=== PATIENT | male | born 1955 | race Caucasian/White ===

== ENCOUNTER 2018-01-12 08:32 | Emergency (ER) | payer OTHER ==
[2018-01-12 08:59] VITALS: BP 141/81
--- NOTE | 2018-01-12 09:46 | RAD ---
HISTORY: ? DVT vs ganglion cyst rupture COMPARISONS: None relevant TECHNIQUE: Multiple transverse and longitudinal ultrasound images were obtained of the right lower extremity from the level of the common femoral vein inferiorly through to the infrapopliteal veins using grayscale, color Doppler, and spectral Doppler imaging with and without compression and with augmentation. Comparison images were obtained of the contralateral common femoral vein. FINDINGS: VEINS: The venous system of the right lower extremity is compressible throughout its course, with normal flow on color Doppler imaging and normal response to augmentation on spectral Doppler imaging. SOFT TISSUES: There is a 2.1 x 1.6 x 1.7 cm fluid collection within the popliteal fossa. OTHER FINDINGS: None. IMPRESSION: 1. NO RIGHT LOWER EXTREMITY DEEP VEIN THROMBOSIS 2. MILAN'S CYST
--- NOTE | 2018-01-12 10:11 | UC ---
Knee Pain HPI - HPI Summary HPI Summary: right knee pain x 4 days pain is behind the right knee , pain is sharp , sever, 8 out of 10 worse with bending the knee and walking, better with rest and elevation no fever, no chills - History of Current Complaint Chief Complaint: UCLowerExtremity Stated Complaint: RIGHT KNEE PAIN Time Seen by Provider: 01/12/18 09:15 Hx Obtained From: Patient Onset/Duration: Gradual Onset, Lasting Days - 4, Still Present Severity Initially: Severe Severity Currently: Severe Pain Intensity: 8 Character: Sharp, Throbbing Aggravating Factor(s): Movement, Weight Bearing, Prolonged Standing, Stairs Alleviating Factor(s): Rest Associated Signs And Symptoms: Negative: Swelling, Redness, Bruising, Fever, Weakness, Numbness, Tingling Able to Bear Weight: Yes - Allergies/Home Medications Allergies/Adverse Reactions: Allergies Allergy/AdvReac Type Severity Reaction Status Date / Time No Known Allergies Allergy Verified 01/12/18 08:50 Home Medications: Home Medications Atorvastatin* [Lipitor*] 10 mg PO 1700 01/12/18 [History Confirmed 01/12/18] Naproxen 500 mg PO Q6HR PRN 01/12/18 [History Confirmed 01/12/18] PMH/Surg Hx/FS Hx/Imm Hx - Additional Past Medical History Additional PMH: melanoma Endocrine History: Diabetes Cardiovascular History: Hypertension - Surgical History Surgical History: Yes Surgery Procedure, Year, and Place: EXCISION OF MELANOMA SKIN 1998 - Family History Known Family History: Positive: Hypertension, Diabetes - Social History Alcohol Use: Rare Substance Use Type: None Smoking Status (MU): Light Every Day Tobacco Smoker Type: Cigars Amount Used/How Often: daily Have You Smoked in the Last Year: Yes - Immunization History Most Recent Influenza Vaccination: NOT IN 2013 Review of Systems Constitutional: Negative Skin: Negative Eyes: Negative ENT: Negative Respiratory: Negative Is Patient Immunocompromised?: No All Other Systems Reviewed And Are Negative: Yes Physical Exam Triage Information Reviewed: Yes Appearance: Well-Nourished, Pain Distress Vital Signs: Initial Vital Signs Temp 98.1 F 01/12/18 08:51 Pulse 78 01/12/18 08:51 Resp 17 01/12/18 08:51 BP 141/81 01/12/18 08:51 Pulse Ox 97 01/12/18 08:51 Vital Signs Reviewed: Yes Eye Exam: Normal Eyes: Positive: Conjunctiva Clear ENT: Positive: Normal ENT inspection, Hearing grossly normal, Pharynx normal Neck: Positive: Supple, Nontender, No Lymphadenopathy Respiratory: Positive: Chest non-tender, Lungs clear, Normal breath sounds Cardiovascular: Positive: RRR, No Murmur, Pulses Normal Musculoskeletal: Positive: Other: - right knee: no swelling, no erythema, + tenderness posterior knee, increase pain with flexion and extension , limited ROM and limited strength Diagnostics - Laboratory Diagnostic Studies Completed/Ordered: right lower ext charity doppler study : IMPRESSION: 1. NO RIGHT LOWER EXTREMITY DEEP VEIN THROMBOSIS. 2. MILAN'S CYST Knee Pain Course/Dx - Differential Dx/Diagnosis Provider Diagnoses: right knee pain. right knee bakers cyst Discharge - Sign-Out/Discharge Documenting (check all that apply): Patient Departure All imaging exams completed and their final reports reviewed: Yes - Discharge Plan Condition: Stable Disposition: HOME Patient Education Materials: Bakers Cyst (ED) Forms: *Work Release Referrals: No Primary Care Phys,NOPCP [Primary Care Provider] - Additional Instructions: cont. with rest, elevated your leg Crouse as needed for sever pain follow up with your pcp in one week, sooner if getting worse - Billing Disposition and Condition Condition: STABLE Disposition: Home
== END 2018-01-12 10:10 | disposition home or self-care (01) ==
LOC: UCCORT 08:32
DX: M71.21 Synovial cyst of popliteal space [Baker], right knee (principal); E11.9 Type 2 diabetes mellitus without complications; I10 Essential (primary) hypertension; F17.290 Nicotine dependence, other tobacco product, uncomplicated; Z85.820 Personal history of malignant melanoma of skin
CPT/HCPCS: 99212; G0463

== ENCOUNTER 2019-05-27 15:28 | Emergency (ER) | payer OTHER ==
[2019-05-27 15:57] VITALS: BP 152/77
--- NOTE | 2019-05-27 16:46 | UC ---
Shoulder Pain HPI - HPI Summary HPI Summary: Pt presents with c/o sudden onset right shoulder and upper back pain. Pt states he woke two days ago with right shoulder pain, tingling and decreased ROM due to pain. Pt has hx of bulging cervical disc of 5-7. Pt denies recent injury. - History of Current Complaint Chief Complaint: UCUpperExtremity Stated Complaint: RT SHOULDER PAIN Time Seen by Provider: 05/27/19 16:39 Hx Obtained From: Patient Onset/Duration: Sudden Onset, Lasting Days, Still Present Timing: Constant Severity Initially: Moderate Severity Currently: Moderate Location Of Pain: Is Discrete @ - right upper back, shoulder, Radiates To - right arm Pain Intensity: 10 Character: Sharp, Dull, Aching, Spasmodic, Stiffness, Burning Aggravating Factor(s): Movement, Lifting, Flexion, Extension, Internal Rotation , External Rotation, Abduction Alleviating Factor(s): Rest Associated Signs And Symptoms: Positive: Weakness, Numbness/Tingling Related History: Dominant Hand Right - Risk Factors Non-Orthopedic Risk Factor: Negative DVT Risk Factors: Negative Septic Arthritis Risk Factor: Negative - Allergies/Home Medications Allergies/Adverse Reactions: Allergies Allergy/AdvReac Type Severity Reaction Status Date / Time No Known Allergies Allergy Verified 05/27/19 15:57 Home Medications: Home Medications lisinopriL [Lisinopril 2.5 MG-] 2.5 mg PO DAILY 02/22/14 [History Confirmed ] Atorvastatin* [Lipitor 10 MG*] 10 mg PO 1700 01/12/18 [History Confirmed ] Naproxen 500 mg PO Q6HR PRN 01/12/18 [History Confirmed 05/27/19] Cyclobenzaprine TAB* [Flexeril 10 MG TAB*] 10 mg PO Q8H PRN #21 tab 05/27/19 [Rx ] predniSONE 10 mg TAB [Deltasone 10 MG TAB*] 30 mg PO DAILY #12 tab 05/27/19 [Rx] PMH/Surg Hx/FS Hx/Imm Hx Previously Healthy: Yes Cardiovascular History: Cardiac Disease, Hypertension - Surgical History Surgical History: Yes Surgery Procedure, Year, and Place: EXCISION OF MELANOMA SKIN 1998 - Family History Known Family History: Positive: Hypertension, Diabetes - Social History Occupation: Employed Full-time Lives: With Family Alcohol Use: Rare Substance Use Type: None Smoking Status (MU): Light Every Day Tobacco Smoker Type: Cigars Amount Used/How Often: daily Have You Smoked in the Last Year: Yes - Immunization History Most Recent Influenza Vaccination: NOT IN 2013 Review of Systems All Other Systems Reviewed And Are Negative: Yes Constitutional: Positive: Negative Skin: Positive: Negative Eyes: Positive: Negative ENT: Positive: Negative Respiratory: Positive: Negative Cardiovascular: Positive: Negative Gastrointestinal: Positive: Negative Genitourinary: Positive: Negative Motor: Positive: Decreased ROM - right shoulder, Weakness - right upper extremity Neurovascular: Positive: Negative Musculoskeletal: Positive: Arthralgia, Decreased ROM, Myalgia Neurological/Mental Status: Positive: Negative Psychological: Positive: Negative Is Patient Immunocompromised?: No Physical Exam Triage Information Reviewed: Yes Appearance: Pain Distress Vital Signs: Initial Vital Signs Temp 99.3 F 05/27/19 15:50 Pulse 87 05/27/19 15:50 Resp 18 05/27/19 15:50 BP 152/77 05/27/19 15:50 Pulse Ox 97 05/27/19 15:50 Vital Signs Reviewed: Yes Eye Exam: Normal ENT: Positive: Hearing grossly normal Dental Exam: Normal Neck exam: Normal Neck: Positive: Supple, Nontender Respiratory: Positive: No respiratory distress Musculoskeletal: Positive: ROM Limited @ - right upper extremity and shoulder, Other: - trigger point tendeerness right upper medial back Neurological Exam: Normal Neurological: Positive: Alert, Muscle Tone Normal Psychological Exam: Normal Skin Exam: Normal Shoulder Course/Dx - Differential Dx/Diagnosis Differential Diagnosis/HQI/PQRI: Bursitis, Other - right arm pain Provider Diagnosis: Trigger point of shoulder region, Right shoulder pain Discharge ED - Sign-Out/Discharge Documenting (check all that apply): Patient Departure All imaging exams completed and their final reports reviewed: No Studies - Discharge Plan Condition: Stable Disposition: HOME Prescriptions: Cyclobenzaprine TAB* [Flexeril 10 MG TAB*] 10 mg PO Q8H PRN #21 tab PRN Reason: Pain - Mild predniSONE 10 mg TAB [Deltasone 10 MG TAB*] 30 mg PO DAILY #12 tab Patient Education Materials: Trigger Point Pain (ED), Arthralgia (ED), Shoulder Pain (ED) Forms: *Work Release Referrals: No Primary Care Phys,NOPCP [Primary Care Provider] - [facility] [Outside] - If Needed - Billing Disposition and Condition Condition: STABLE Disposition: Home - Attestation Statements Provider Attestation: This patient was not seen by me. I was available for consult. Chart reviewed. KATY
== END 2019-05-27 16:55 | disposition home or self-care (01) ==
LOC: UCCORT 15:28
DX: M25.511 Pain in right shoulder (principal); R53.1 Weakness; M50.20 Other cervical disc displacement, unspecified cervical region; I10 Essential (primary) hypertension; F17.290 Nicotine dependence, other tobacco product, uncomplicated; Z79.890 Hormone replacement therapy; Z79.899 Other long term (current) drug therapy
CPT/HCPCS: 99212; G0463